=== PATIENT | male | born 1980 ===

== ENCOUNTER → 2020-09-03 08:35 | Outpatient (CLI) | payer OTHER, SELFPAY ==
[2020-09-03 10:54] LABS: COVID19 -Nasal RAPID Negative (Negative)
== END ==
PROVIDERS: Visit Provider Family Medicine Sleep Medicine
DX: Z20.822 Contact with and (suspected) exposure to COVID-19 (principal); G47.33 Obstructive sleep apnea (adult) (pediatric); G47.19 Other hypersomnia; G47.00 Insomnia, unspecified; Z87.898 Personal history of other specified conditions
CPT/HCPCS: 87635; 95810